=== PATIENT | male | born 1980 | race Hispanic/Latino ===

== ENCOUNTER → 2024-06-05 | Day surgery (SDC) | payer BC ==
[~2024-06-05] MED LIST: FAMOTIDINE20 MG PO; FENTANYL CITRATE/PF 100MCG/2 ML INJ ONE; LIDOCAINE HCL 2% LOCAL INJ 5 ML SDV VIAL INJ ONE; MIDAZOLAM HCL 2 MG/2 ML VIAL ONE; OMEPRAZOLE40 MG PO; PROPOFOL IV EMULSION 10 MG/ML 20 ML VIAL ONE
[2024-06-05] MEDS: LACTATED RINGER'S 1,000 ML ONE (09:49)
[2024-06-05 11:17] VITALS: TEMP 98.5
[2024-06-05 11:30] VITALS: BP 121/74; PULSE 67; RESP 19; O2SAT 100
== END | disposition home or self-care (01) ==
LOC: OR 08:32
PROVIDERS: ATTEND Internal Medicine Gastroenterology
DX: K21.9 Gastro-esophageal reflux disease without esophagitis (principal); K29.50 Unspecified chronic gastritis without bleeding; B96.81 Helicobacter pylori [H. pylori] as the cause of diseases classified elsewhere; B37.81 Candidal esophagitis; I10 Essential (primary) hypertension; I45.10 Unspecified right bundle-branch block; F17.200 Nicotine dependence, unspecified, uncomplicated; Z01.810 Encounter for preprocedural cardiovascular examination; Z68.31 Body mass index [BMI] 31.0-31.9, adult
CPT/HCPCS: 43239; 93005; J2003; J2250; J2704; J3010; J7121